=== PATIENT | female | born 2005 | race Caucasian/White ===

== ENCOUNTER 2024-06-30 12:51 | Outpatient (CLI) | payer BC, OTHER | END 2024-06-30 23:59 | disposition home or self-care (01) | LOC: MRI 12:51 | PROVIDERS: ATTEND Family Medicine Sports Medicine | DX: S66.911A Strain of unspecified muscle, fascia and tendon at wrist and hand level, right hand, initial encounter (principal); S63.591A Other specified sprain of right wrist, initial encounter; M77.9 Enthesopathy, unspecified; M25.531 Pain in right wrist; X58.XXXA Exposure to other specified factors, initial encounter; Y93.89 Activity, other specified; Y92.89 Other specified places as the place of occurrence of the external cause; Y99.8 Other external cause status | CPT/HCPCS: 73221 ==